=== PATIENT | male | born 1955 | race Caucasian/White ===

== ENCOUNTER 2017-09-12 08:26 | Day surgery (SDC) | payer MEDICARE ==
[~2017-09-12] VITALS: Ht 172.7 cm; Wt 101.8 kg
[~2017-09-12 08:26] MED LIST: AMLO1CAP13 PO; FENO145T37 PO; MORPHINE PO; SODIUM CHLORIDE 0.9% 1000ML 1,000 ML IV ONE
[2017-09-12 09:32] VITALS: BP 134/69
[2017-09-12] MEDS ORDERED: PROPOFOL 10 MG/ML 20ML VIAL IV ONE (10:45)
== END 2017-09-12 11:30 | disposition home or self-care (01) ==
LOC: DAH 08:26 → ENDO 08:26
PROVIDERS: ATTEND Internal Medicine Gastroenterology
DX: Z09 Encounter for follow-up examination after completed treatment for conditions other than malignant neoplasm (principal); Z86.010 Personal history of colon polyps; Z68.41 Body mass index [BMI] 40.0-44.9, adult; I10 Essential (primary) hypertension; E78.5 Hyperlipidemia, unspecified; Z79.899 Other long term (current) drug therapy; E66.9 Obesity, unspecified
CPT/HCPCS: 45378; A4606; J2704; J7030 ×2

== ENCOUNTER → 2018-09-29 | Outpatient (CLI) | payer MEDICARE ==
[~2018-09-29] MED LIST changes: -SODIUM CHLORIDE 0.9% 1000ML 1,000 ML IV ONE
== END | disposition home or self-care (01) ==
LOC: RAH 09:50
PROVIDERS: ATTEND Family Medicine
DX: N28.1 Cyst of kidney, acquired (principal)
CPT/HCPCS: 76700